=== PATIENT | male | born 1960 | race Caucasian/White ===

== ENCOUNTER 2017-04-26 11:01 | Emergency (ER) | payer MEDICAID, OTHER ==
[~2017-04-26] VITALS: Ht 180.3 cm; Wt 90.7 kg
[~2017-04-26 11:01] MED LIST: NO REPORTABLE MEDS
--- NOTE | 2017-04-26 11:02 | NUR ---
PATIENT TO ED DT DT FLU LIKE SYMPTOMS-- COUGH AND CONGESTION SINCE WEDNESDAY WORST AT NIGHT. PATIENT IS AWAKE AND ALERT, SATING WELL ON ROOM AIR, PATIENT NOT IN DISTRESS, SKIN IS WARM TO TOUCH AND NON DIAPHORETIC, PT IS AFEBRILE. VSS
--- NOTE | 2017-04-26 11:10 | NUR ---
MD GALO AT BEDSIDE
[2017-04-26 11:38] VITALS: BP 113/80
--- NOTE | 2017-04-26 11:38 | NUR ---
Patient discharged to home in stable condition. Written and verbal after care instructions given. Patient verbalizes understanding of instruction.
== END 2017-04-26 11:39 | disposition home or self-care (01) ==
LOC: ER 11:05
DX: B34.9 Viral infection, unspecified (principal); M10.9 Gout, unspecified
CPT/HCPCS: 71045; 99283; A4606; Z7610

== ENCOUNTER 2022-06-27 22:59 | Inpatient (IN) | payer MEDICAID, OTHER ==
[~2022-06-27] VITALS: Ht 177.8 cm; Wt 88.9 kg
--- NOTE | 2022-06-27 23:10 | NUR ---
BIBWIFE FROM HOME CC OF CHEST TIGHTNESS, WITH TIGHTNESS ON THE NECK, COLD SWEATS AND DIZZINESS. PER PATIENT HE HAD 3 BEERS TODAY. HE WAS ASLEEP AND WOKE UP 0 FEELING CHEST TIGHTNESS, NECK TIGHTNESS AND DIZZINESS. PAST MED HX WAS CANCER OF THROAT DX 2021 AND FINISHED HIS RADIATION TTT JAN 2022. PATIENT COMPLAINT OF FEELING WEIRD. PLACED COMFORTABLY IN BED. VITALS CHECKED. ATTACHED TO MONITOR.
[2022-06-27] MEDS ORDERED: ADENOSINE 6 MG/2 ML VIAL ONE (23:18)
--- NOTE | 2022-06-27 23:20 | NUR ---
EKG DONE, STRIP ATTACHED TO CHART. PT HAS SVT WITH HR OF 195 IN STRIP
--- NOTE | 2022-06-27 23:25 | NUR ---
BS OF 117, AWARE
--- NOTE | 2022-06-27 23:25 | NUR ---
IV ERENDIRA INSERTED ON LEFT AC G20. BLOOD DRAWN AND SENT TO LAB
--- NOTE | 2022-06-27 23:27 | NUR ---
1ST ADENOSINE 6MG IV BOLUS GIVEN ON LEFT AC G20. CONTINUOUS EKG DONE
--- NOTE | 2022-06-27 23:29 | NUR ---
2ND ADENOSINE 12MG IV BOLUS GIVEN
[2022-06-27] MEDS ORDERED: IV NS 0.9% 1,000 ML BAG IV ONE (23:30)
[2022-06-27] MEDS ORDERED: ADENOSINE 6 MG/2 ML VIAL IVP ONE (23:30)
[2022-06-27] MEDS ORDERED: DILTIAZEM HCL 25 MG IV ONE (23:33)
[2022-06-27] MEDS ORDERED: DILTIAZEM HCL 50 MG IV ONE (23:34)
--- NOTE | 2022-06-27 23:37 | NUR ---
CARDIZEM 10MG IV BOLUS GIVEN
--- NOTE | 2022-06-27 23:37 | NUR ---
Lucila fritz in [facility] - 06/27/22 at 2354 by ROSALBA CARDIZEN 10MG IV BOLUS GIVEN
[2022-06-27] MEDS: DILTIAZEM HCL IV 125 MG in IV NS 0.9% 100 ML IV PRN ×3 (23:40→23:54)
--- NOTE | 2022-06-27 23:40 | NUR ---
XRAY DONE AT BEDSIDE
--- NOTE | 2022-06-27 23:40 | NUR ---
DILTIAZEM DRIP (125MG+100ML D5W) AT 5MG/HR STARTED. ATTACHED TO IV ACCESS ON LEFT AC G20.
--- NOTE | 2022-06-27 23:45 | NUR ---
COVID SWAB DONE AND SENT TO LAB
[2022-06-27 23:47] LABS: BASOPHILS # (AUTO) 0.1 K/uL (0.0-0.2); BASOPHILS % (AUTO) 1.1 % (0.0-2.0); EOSINOPHILS % (AUTO) 4.2 % (0.0-6.0); HEMATOCRIT 52 % (39-51); HEMOGLOBIN 17.9 g/dL (13.5-17.5); LYMPHOCYTES # (AUTO) 2.6 K/uL (0.8-4.8); LYMPHOCYTES % (AUTO) 32.3 % (20.0-44.0); MEAN CORPUSCULAR HGB CONC 34 g/dl (31.0-36.0); MEAN CORPUSCULAR VOLUME 95 fL (80-96); MONOCYTES # (AUTO) 0.9 K/uL (0.1-1.30); MONOCYTES % (AUTO) 10.7 % (2.0-12.0); NEUTROPHILS # (AUTO) 4.2 K/uL (1.8-8.9); NEUTROPHILS % (AUTO) 51.7 % (43.0-81.0); PLATELET COUNT (AUTO) 124 K/uL (150-450); RED BLOOD CELL COUNT(AUTO) 5.49 MIL/uL (4.5-6.0); WHITE BLOOD COUNT (AUTO) 8.2 K/uL (4.3-11.0)
--- NOTE | 2022-06-27 23:47 | NUR ---
CARDIZEM DRIP INCREASED TO 10MG/HR. BP 144/86mmHg, HR 191bpm
[2022-06-27 23:51] LABS: ALANINE AMINOTRANSFERASE 45 U/L (12-78); ALBUMIN 3.4 g/dL (3.4-5.0); ALKALINE PHOSPHATASE 152 U/L (46-116); ASPARTATE AMINOTRANSFERASE 78 U/L (15-37); BILIRUBIN,DIRECT 0.6 mg/dL (0.0-0.2); BILIRUBIN,TOTAL 2.1 mg/dL (0.2-1.0); CALCIUM, SERUM 9.6 mg/dL (8.5-10.1); CARBON DIOXIDE 22 mmol/L (21-32); CHLORIDE 96 mmol/L (98-107); GLUCOSE 115 mg/dL (74-106); POTASSIUM 3.3 mmol/L (3.5-5.1); SODIUM SERUM 134 mmol/L (136-145); TOTAL PROTEIN, SERUM 8.1 g/dL (6.4-8.2); UREA NITROGEN, BLOOD 9 mg/dL (7-18)
--- NOTE | 2022-06-27 23:54 | NUR ---
CARDIZEM DRIP INCREASED TO 15MG/HR, ATTACHED TO IV ERENDIRA ON LEFT AC G20. BP 121/74mmHg, HR 134, SAT 100%, RR 24
[2022-06-28] MEDS ORDERED: ADENOSINE 6 MG/2 ML VIAL IVP ONE
[2022-06-28] MEDS ORDERED: DILTIAZEM HCL 50 MG IV IV ONE
[2022-06-28] MEDS ORDERED: CT SWABBABLE VALVE TRANS SET 1 EA INFUS.SET MC ONE (00:25)
[2022-06-28] MEDS ORDERED: IV NS 0.9% 250 ML IV ONE (00:25)
[2022-06-28] MEDS ORDERED: IOHEXOL-350 100 ML VIAL IV ONE (00:25)
--- NOTE | 2022-06-28 01:06 | NUR ---
PATIENT CONVERTED TO NSR 104BPM.
--- NOTE | 2022-06-28 01:25 | NUR ---
CARDIZEM DRIP DISCONTINUED. HR 99BPM, BP 118/73, RR 20, SATS 100%
--- NOTE | 2022-06-28 01:35 | NUR ---
VIDEO GAME CREATOR AT BEDSIDE
--- NOTE | 2022-06-28 01:49 | NUR ---
RECEIVED AUTHORIZATION FOR ADMISSION FROM SET UP MOLD TECHNICIAN.
--- NOTE | 2022-06-28 01:58 | NUR ---
DR. ZHU ON THE PHONE WITH DR. MCDUFFIE
--- NOTE | 2022-06-28 02:04 | NUR ---
ADMISSION ORDERS RECEIVED FROM DR. ZHU OVER THE PHONE
[2022-06-28] MEDS ORDERED: ASPIRIN 325 MG TABLET PO ONE (02:30)
[2022-06-28] MEDS ORDERED: ASPIRIN 325 MG TABLET ONE (02:43)
--- NOTE | 2022-06-28 02:51 | NUR ---
Lucila fritz in [facility] - 06/28/22 at 0255 by ROSALBA 2DECHO DONE AT BEDSIDE.
--- NOTE | 2022-06-28 02:56 | NUR ---
ELSY OF GALLBLADDER DONE AT BEDSIDE
--- NOTE | 2022-06-28 02:58 | NUR ---
room 107
--- NOTE | 2022-06-28 03:15 | NUR ---
REPORT GIVEN TO ABHISHEK RIVERA FOR [facility]ITA
--- NOTE | 2022-06-28 03:20 | NUR ---
RN NOTE RECEIVED ER ADMISSION REPORT FROM ABHISHEK MERRILL. ALL PERTINENT ADMISSION INFO REGARDING PT NOTED. WILL WAIT FOR PT TO BE TRANSFERRED TO UNIT AND ADDRESS NEEDS ACCORDINGLY. CAPACITOR INSPECTOR MADE AWARE.
[2022-06-28] MEDS ORDERED: ONDANSETRON HCL/PF 4 MG/2 ML VIAL IV PRN (03:30)
[2022-06-28] MEDS ORDERED: ACETAMINOPHEN 325 MG TABLET PO PRN (03:30)
--- NOTE | 2022-06-28 03:35 | NUR ---
RN NOTE RECEIVED PT FROM ER VIA GURNEY ACCOMPANIED BY 2 ER STAFF AND TRANSFERRED TO BED WITH 1 PERSON ASSIST, PATIENT GENERALLY INDEPENDENT. PT IS A/OX4;ON ROOM AIR WITH RESPIRATIONS EVEN AND UNLABORED. NO CHEST PAIN AT THIS TIME PER PATIENT. S/P CARDIZEM DRIP IN ER. NO SR ON MONITOR. COMPREHENSIVE PHYSICAL ASSESSMENT AND PATIENT CARE DONE. CALL LIGHT WITHIN REACH, SAFETY MEASURES, WILL CONTINUE MONITOR AND ASSESS THROUGHOUT THE SHIFT. WILL CARRY OUT MD ORDERS ACCORDINGLY. ACCOUNTS RECEIVABLE ASSISTANT MADE AWARE.
--- NOTE | 2022-06-28 03:50 | NUR ---
RN NOTE TELEPHONE ORDER RECEIVED FROM DR. ZHU, ADMIT TO TELE, DX: CHEST PAIN, DIET: REGULAR DIET, MEDICATIONS: METOPROLOL 25MG PO BID, TYLENOL 650MG PO Q4H PRN, ZOFRAN 4MG Q4H PRN LABS: TROPONIN Q4H X2, CBC, BMP, TSH , LIPID PANEL AND AIC, 2D ECHO TO BE READ BY YOUNG LEIGH AND CORONARY ARTERY IN AM.
[2022-06-28 04:00] VITALS: BP 118/60
[2022-06-28 04:33] LABS: EOSINOPHILS % (MANUAL) 3 % (0-4); LYMPHOCYTES % (MANUAL) 40 % (16-48); MONOCYTES % (MANUAL) 11 % (0-11.0); NEUTROPHILS % (MANUAL) 46 (42-76)
[2022-06-28 06:07] LABS: BASOPHILS % (AUTO) 0.6 % (0.0-2.0); HEMATOCRIT 48 % (39-51); HEMOGLOBIN 16.4 g/dL (13.5-17.5); LYMPHOCYTES # (AUTO) 1.1 K/uL (0.8-4.8); LYMPHOCYTES % (AUTO) 17.3 % (20.0-44.0); MEAN CORPUSCULAR HGB CONC 34 g/dl (31.0-36.0); MEAN CORPUSCULAR VOLUME 96 fL (80-96); MONOCYTES # (AUTO) 0.6 K/uL (0.1-1.30); MONOCYTES % (AUTO) 9.6 % (2.0-12.0); NEUTROPHILS # (AUTO) 4.5 K/uL (1.8-8.9); NEUTROPHILS % (AUTO) 70.5 % (43.0-81.0); PLATELET COUNT (AUTO) 104 K/uL (150-450); RED BLOOD CELL COUNT(AUTO) 5.03 MIL/uL (4.5-6.0); WHITE BLOOD COUNT (AUTO) 6.4 K/uL (4.3-11.0)
--- NOTE | 2022-06-28 06:36 | NUR ---
RN NOTE PATIENT REMAINS IN ROOM IN NO SIGNS OF RESPIRATORY DISTRESS, PATIENT STILL ON ROOM AIR ;TOLERATING WELL SATURATING @ >95% SP02. SAFETY MEASURES IMPLEMENTED, BED IN LOWEST POSITION, LOCKED, SIDE RAILS UP, CALL LIGHT WITHIN REACH. ALL NEEDS AND ORDERS ADDRESSED DURING THE SHIFT. IV ACCESS MAINTAINED INTACT, SECURED AND FLUSHING WELL. PATIENT TOLERATED WELL. PATIENT KEPT CLEAN AND COMFORTABLE WITHIN THE SHIFT. PLAN: LABS, ECHO TO BE READY BY DR. VIDAL AND CTA CA. PATIENT ENDORSED TO INCOMING SHIFT RN WITH STABLE VITAL SIGN AND FOR CONTINUITY OF CARE.
--- NOTE | 2022-06-28 07:00 | NUR ---
RN OPENING NOTE PATIENT AWAKE IN NO SIGNS OF RESPIRATORY DISTRESS ON ROOM AIR, SATURATING @ >95%. PT IS AMBULATORY, BPR, A/O X 4, VERY COOPERATIVE. SAFETY MEASURES IMPLEMENTED, BED IN LOWEST POSITION, LOCKED, CALL LIGHT WITHIN REACH.
[2022-06-28 07:23] LABS: CALCIUM, SERUM 8.7 mg/dL (8.5-10.1); CREATININE 0.7 mg/dL (0.6-1.3); POTASSIUM 3.6 mmol/L (3.5-5.1)
[2022-06-28 07:41] LABS: THYROID STIMULATING HORMONE 3.604 uIU/mL (0.358-3.74)
[2022-06-28 08:00] VITALS: BP 144/89
[2022-06-28] MEDS ORDERED: Potassium Chloride 10 MEQ in IV NS 0.9% 1,000 ML IV PRN (08:00)
[2022-06-28] MEDS ORDERED: ASPI-1420 PO (08:06)
[2022-06-28] MEDS ORDERED: METO25TA3 PO (08:06)
[2022-06-28] MEDS ORDERED: METOPROLOL TARTRATE 25 MG TABLET PO SCH (09:00)
[2022-06-28 09:23] VITALS: BP 144/89
--- NOTE | 2022-06-28 11:32 | NUR ---
PATIENT D/C, TAKEN OUTSIDE TO THE CAR IN WHEELCHAIR, ACCOMPANIED BY . D/C INSTRUCTION PROVIDED, VERBALIZED UNDERSTANDING.
== END 2022-06-28 11:26 | disposition home or self-care (01) | DRG 201 ==
LOC: ER 23:01 → TELE1 06-28 03:10
PROVIDERS: ADMIT Internal Medicine; ATTEND Internal Medicine
DX: I48.0 Paroxysmal atrial fibrillation (principal); E87.6 Hypokalemia; F10.20 Alcohol dependence, uncomplicated; Z85.819 Personal history of malignant neoplasm of unspecified site of lip, oral cavity, and pharynx; Z92.3 Personal history of irradiation; Z20.822 Contact with and (suspected) exposure to COVID-19
CPT/HCPCS: 36415; 71045-TC; 76705-TC; 80048-TC; 80061-TC; 80076-TC; 82962-TC; 84443-TC; 84484-TC; 85025-TC; 85378-TC; 85730-TC; 93307-TC; A4223; C9803; G0378; G0480; J0153; J3480; J3490; J7030; J7050; J7060; Q9967